=== PATIENT | male | born 1955 | race Caucasian/White ===

== ENCOUNTER 2019-10-01 10:39 | Day surgery (SDC) | payer BC ==
[~2019-10-01] VITALS: Ht 193 cm; Wt 99.8 kg
--- NOTE | ~2019-10-01 | OR ---
[facility] [address], [place] [address] Draft DATE OF OPERATION: 10/01/2019 SURGEON: Дмитрий Jang MD PREOPERATIVE DIAGNOSIS: Right carpal tunnel syndrome. POSTOPERATIVE DIAGNOSIS: Right carpal tunnel syndrome. PROCEDURE: Right carpal tunnel release. ANESTHESIA: Right Jenifer block; Wong Diaz CRNA and local 6 mL of 0.25% Marcaine with epinephrine. INDICATION: This 63-year-old white man is a patient of TRE Tariq. He has had clinical symptoms of progressive bilateral carpal tunnel syndrome. He has undergone left carpal tunnel release. He has done well from that. He is here today for right carpal tunnel release. He understands the risks of bleeding, infection, nerve injury, and other unforeseen complications including recurrent disease. He has a very strong clinical history of carpal tunnel syndrome and formal neurologic testing and has not been undertaken his case as there are some difficulties in arranging our typical studies due to the COVID pandemic. He appears to have a secure diagnosis on the left side, having undergone release with good clinical result. FINDINGS: Division of the transverse carpal ligament was undertaken in the standard way down to the palmar fascia and proximally to the wrist crease under direct visualization. The underlying nerve was chronically inflamed. There was no sign of abnormality, certainly no tumor or other problem. DESCRIPTION OF PROCEDURE: The patient was brought to the operating room and given a right-handed [place] block in the typical way. The right hand was prepared with a chlorhexidine solution and draped sterilely. Two blue towels were rolled in place behind the wrist allowing for good extension of the right wrist with the metal hand retractor used to provide optimal exposure. Ulnar to the thenar crease, a small incision was made in the proximal palm. PATIENT NAME: YUNG SCHMITT OPERATIVE REPORT DATE OF : 53 REPORT #: [id number] PHYSICIAN: ДМИТРИЙ JANG MD PCP: HORACE VARGAS REPORT IS CONFIDENTIAL AND NOT TO BE RELEASED WITHOUT AUTHORIZATION [facility] [address], [place] [address] Draft Dissection carried through the subcutaneous tissue sharply. Small amount of electrocautery was used for blood vessels noted in the subdermal area. The palmaris longus was incised along its fibers revealing the underlying transverse carpal ligament. This was incised with a #15 blade more fully. Hemostat was placed beneath the ligament and transection proceeded distally onto the palmar fat. Hemostat was removed. The underlying nerve appeared chronically inflamed. Hemostat was manipulated beneath the transverse carpal ligament proximally and transection undertaken for sharply and ultimately with tenotomy scissors to the proximal wrist crease. There appeared to be no sign of anomalous findings and the nerve was chronically inflamed. 6 mL of 0.25% Marcaine with epinephrine was injected locally in the subcutaneous tissues. The skin was then closed with interrupted 2-0 nylon. A Xeroform gauze dressing was applied as well as plain gauze. Subsequently, a flexor con and ultimately a cock-up wrist splint and an Reji wrap. Pressure was applied to the operative site and the tourniquet was taken down. Tourniquet time total was 21 minutes. The sutures removed from the left palmar area without problem showing no sign of dehiscence or other issues. The patient tolerated procedure well. Blood loss was none. Sponge, needle, and instruments counts were reported as correct x3. MD EVERETT Ramirez/MANFRED /[id number] cc: TRE Tariq Copies: HORACE VARGAS ~ PATIENT NAME: JARRETT AZYUNG MARIO OPERATIVE REPORT DATE OF : 53 REPORT #: [id number] PHYSICIAN: ДМИТРИЙ JANG MD PCP: HORACE VARGAS REPORT IS CONFIDENTIAL AND NOT TO BE RELEASED WITHOUT AUTHORIZATION
[~2019-10-01 10:39] MED LIST: ALEVE220 MG PO; BENICAR20 MG PO; GABAPENTIN100 MG PO; HYDROCODON-ACE1 EA10 PO; IRBESARTAN150 MG PO; MOTRIN IB200 MG PO; PERCOCET 7.5-31 EACH PO; TYLENOL EXTRA500 MG PO; VITAMIN D350 MC1 PO; ZETIA10 MG PO
--- NOTE | 2019-10-01 12:56 | NUR ---
10/01/19 Penny6 Chen Chapman 9789-PATIENT ARRIVED TO PACU ON 6L MASK AWAKE DENIES PAIN OR NAUSEA. RR EVEN. SR. RIGHT ARM ELEVATED ON PILLOW GOOD CAP REFILL, WARM TIFFANIE RADIAL PULSE DUE TO DRESSING. PT REPORTS SOME NUMBNESS CAN WIGGLE FINGERS A LITTLE. STITCHES WERE REMOVED FROM LEFT HAND CDI.
[2019-10-01] MEDS ORDERED: TYLENOL EXTRA500 MG PO (13:04)
[2019-10-01] MEDS ORDERED: OXYCODON-ACETA1 EAC2 PO (13:04)
== END 2019-10-01 13:40 | disposition home or self-care (01) ==
LOC: OPS 10:39 → DS 10:42 → OPS 12:00
PROVIDERS: Surgery
PROC: 01N50ZZ Release Median Nerve, Open Approach (ICD-10-PCS; principal; 2019-10-01 12:00)
DX: G56.01 Carpal tunnel syndrome, right upper limb (principal); I10 Essential (primary) hypertension; Z79.899 Other long term (current) drug therapy
CPT/HCPCS: 01810; J0690; J2001; J2704; J3010

== ENCOUNTER 2019-10-08 09:00 | Day surgery (SDC) | payer BC ==
--- NOTE | ~2019-10-08 | OR ---
[facility] [address] [place], [place] [address] Draft DATE OF OPERATION: 10/08/2019 SURGEON: Дмитрий Jang MD PREOPERATIVE DIAGNOSIS: Right inguinal hernia. POSTOPERATIVE DIAGNOSIS: Right indirect inguinal hernia. PROCEDURE: Repair of right indirect inguinal hernia with implantation of Prolene mesh in underlay technique. ANESTHESIA: General endotracheal; Josias Dela Cruz CRNA, and local 10 mL of 0.25% Marcaine with epinephrine. INDICATION: This 63-year-old white man is a patient of Horace Vargas. He has undergone carpal tunnel release by me in the recent past. He has since developed a right inguinal hernia, which appears to be reducible, but quite symptomatic (painful). He shows no evidence of bowel obstruction or incarceration. He is admitted at this time to undergo right inguinal hernia repair. He understands the risks of bleeding, infection, recurrence, and other unforeseen complications. Understanding this, he wished to proceed. FINDINGS: Small incision was maintained for operation. The cord structures were normal and an ilioinguinal nerve branch was identified and preserved. The hernia itself was an indirect type, but relatively wide mouth and not long. The hernia sac was invaginated rather than excised. Implantation of Prolene mesh in underlay technique was used to provide repair. PROCEDURE IN DETAIL: The patient was brought to the operating room and given a general endotracheal anesthetic. Preoperative antibiotic Ancef was given. Sequential compression device stockings were used and heparin subcutaneously was administered. The lower abdomen was clipped and prepared with a chlorhexidine solution and draped sterilely. An incision was made cephalad to the pubic tubercle on the right. Dissection was carried along the PATIENT NAME: YUNG SCHMITT OPERATIVE REPORT DATE OF : 53 REPORT #: [id number] PHYSICIAN: ДМИТРИЙ JANG MD PCP: HORACE VARGAS REPORT IS CONFIDENTIAL AND NOT TO BE RELEASED WITHOUT AUTHORIZATION [facility] [address] [place], [place] [address] Draft line of skin tension. Dissection carried through the subcutaneous tissue with blunt and electrocautery dissection. The external oblique was incised along its fibers revealing the underlying cord. An ilioinguinal nerve branch was dissected free from the cremasteric muscle fibers of the cord and reflected medially around the external oblique. The cord was then freed from the inguinal canal and encircled with a [place] drain. The floor of the canal showed attenuated fibers of the fascia of the transversalis. There appeared to be an indirect sac medial and anterior to the cord. This was dissected free. It was rather wide-mouth and not excessively long. Excision of the sac and ligation was deemed unnecessary. The sac was invaginated instead. The fibers of the transversalis were incised with electrocautery and using blunt dissection, the properitoneal fat was free and invagination of the indirect hernia associated with it. A segment of Prolene mesh was cut to an elliptical configuration and secured in an underlay technique with interrupted 2-0 Prolene sutures. The defect was cut in the graft to accommodate the cord structures. The tails of the graft were secured laterally. Special care was taken to avoid incorporation of the ilioinguinal nerve. External oblique was reapproximated over the cord after replacing the nerve within the canal. This was accomplished with 2-0 Vicryl. A 10 mL of 0.25% Marcaine with epinephrine had been injected to the floor of the canal. Jaron's layer was reapproximated with interrupted 2-0 Vicryl and a running subcuticular 3-0 Vicryl was used for the skin. Steri-Strips were applied as was the silver sponge dressing. The patient tolerated the procedure well. BLOOD LOSS: Minimal. COMPLICATIONS: None. MD EVERETT Ramirez/MANFRED /[id number] cc: TRE Tariq PATIENT NAME: YUNG SCHMITT MARIO OPERATIVE REPORT DATE OF : 53 REPORT #: [id number] PHYSICIAN: ДМИТРИЙ JANG MD PCP: HORACE VARGAS REPORT IS CONFIDENTIAL AND NOT TO BE RELEASED WITHOUT AUTHORIZATION [facility] [address] [facility] [place], [place] [address] Draft Copies: HORACE VARGAS ~ PATIENT NAME: YUNG SCHMITT MARIO OPERATIVE REPORT DATE OF : 53 REPORT #: [id number] PHYSICIAN: ДМИТРИЙ JANG MD PCP: HORACE VARGAS REPORT IS CONFIDENTIAL AND NOT TO BE RELEASED WITHOUT AUTHORIZATION
[~2019-10-08 09:00] MED LIST changes: +OXYCODON-ACETA1 EAC2 PO
[2019-10-08] MEDS ORDERED: TYLENOL EXTRA500 MG PO (12:32)
[2019-10-08] MEDS ORDERED: OXYCODON-ACETA1 EAC2 PO (12:32)
[2019-10-08] MEDS ORDERED: IBUPROFEN600 MG PO (12:32)
[2019-10-08] MEDS ORDERED: PERCOCET 7.5-31 EACH PO (13:45)
== END 2019-10-08 14:27 | disposition home or self-care (01) ==
LOC: DS 09:00
PROVIDERS: Surgery
PROC: 0YU50JZ Supplement Right Inguinal Region with Synthetic Substitute, Open Approach (ICD-10-PCS; principal; 2019-10-08 11:15)
DX: K40.90 Unilateral inguinal hernia, without obstruction or gangrene, not specified as recurrent (principal); I10 Essential (primary) hypertension; Z79.899 Other long term (current) drug therapy
CPT/HCPCS: 00830; C1781; J0690; J1100; J1644; J1885; J2001; J2405; J2704; J3010; J7121